=== PATIENT | female | born 1940 | race Caucasian/White ===

== ENCOUNTER 2016-07-17 19:50 | Emergency (ER) | payer OTHER, MEDICARE ==
--- NOTE | 2016-07-17 20:44 | ED SKIN/ALLERGY COMPLAINT ---
History of Present Illness General Chief Complaint: Skin Rash/ Abcess Stated Complaint: ABCESS, BLEEDING, PAIN, X 3 WEEK Source: patient Exam Limitations: no limitations Vital Signs & Intake/Output Vital Signs & Intake/Output Vital Signs Date Time Temp Pulse Resp B/P Pulse O2 O2 Flow FiO2 Ox Delivery Rate 07/17 2234 97.3 80 18 128/72 98 07/17 1999 97.5 97 18 156/77 99 Room Air Allergies Coded Allergies: Penicillins (Mild, RASH 07/17/16) naproxen (From NAPROSYN) (UNKNOWN 07/17/16) Triage Note: TRIAGE; PT TO ED WITH ?ABCESS TO THE BACK OF HER HEAD X3 WEEKS, DID NOT SEEN ANYONE FOR IT, STATES TODAY SHE TOOK A NAP AND WHEN SHE WOKE UP SHE NOTICED IT STARTED TO DRAIN, AREA APPEARS REDDENED AND DRAINING SLIGHTLY AT THIS TIME. Triage Nurses Notes Reviewed? yes Onset: Gradual Duration: constant Timing: recent history Severity: moderate Severity Numbers: 5 HPI: Patient is a 76-year-old female with past medical history of diabetes who presents to emergency room with concerns of a two-week history of tender swollen red region to the posterior aspect of her neck in which she noticed today after squeezing purulent discharge from the region. Patient denies any fevers or chills. (TYLOR MORE) Past History Travel History Traveled to [place] past 21 day No Medical History Any Pertinent Medical History? see below for history Cardiovascular: hypertension, hyperlipidemia Respiratory: obstructive sleep apnea Musculoskeletal: chronic back pain Endocrine: diabetes Surgical History Surgical History: non-contributory Psychosocial History What is your primary language Hungarian Tobacco Use: Never used Family History Hx Contributory? No (TYLOR MORE) Review of Systems Review of Systems Constitutional: Reports: no symptoms. EENTM: Reports: no symptoms. Respiratory: Reports: no symptoms. Cardiovascular: Reports: no symptoms. GI: Reports: no symptoms. Genitourinary: Reports: no symptoms. Musculoskeletal: Reports: no symptoms. Skin: Reports: see HPI. Neurological/Psychological: Reports: no symptoms. Hematologic/Endocrine: Reports: no symptoms. Immunologic/Allergic: Reports: no symptoms. All Other Systems: Reviewed and Negative (TYLOR MORE) Physical Exam Physical Exam General Appearance: no apparent distress, obese Skin: warm/dry Skin Problem Location: neck Comments: Well-developed well-nourished no apparent distress. HEENT: Atraumatic, extraocular motion intact Neck: Supple, no lymphadenopathy Back: Nontender Respiratory: No respiratory distress Extremities: No edema, full range of motion Neuro: Alert and oriented x3 Psych: Mood affect normal, normal memory normal judgment. Diagram Head: 1) 3 cm fluctuance erythema warmth and tenderness with minimal purulent discharge (TYLOR MORE) Progress Differential Diagnosis: abscess/cellulitis, allergic reaction, contact dermatitis Plan of Care: Orders Procedure Date/time Status HEAD & NECK CULTURE 07/17 2155 Active Microbiology 07/17 2199 HEAD/NECK: Head/Neck Culture - RES 07/17 2199 HEAD/NECK: Gram Stain - RES Betadine was initially applied for sterile technique Using 1% lidocaine 3 mL were used for local anesthesia. 1 cm incision was made Moderate purulent discharge noted Culture was obtained which was applied gauze and Tegaderm WAS applied. Patient tolerated well (TYLOR MORE) Departure Departure Disposition: HOME OR SELF CARE Condition: Stable Clinical Impression Primary Impression: Cellulitis and abscess of neck Referrals: MARY ALICE ZAPATA,CAROL CLEMENTS (PCP/Family) Additional Instructions: As discussed be in applying warm compresses to the area. Begin the prescription of Keflex and Bactrim as directed for the full course. Prescription awaiting at [facility] pharmacy. Begin IBUPROFEN for pain and inflammation. Return to emergency room in 2 days for wound recheck. If the bandages and titer falloff please apply with the extra ones provided to in the emergency room. If you know worsening symptoms or new concerning onset of symptom return to emergency Departure Forms: Customer Survey General Discharge Information (TYLOR MORE) PA/CONSUMER EDUCATOR Co-Sign Statement Statement: ED Attending supervision documentation- [X] I saw and evaluated the patient. I have also reviewed all the pertinent lab results and diagnostic results. I agree with the findings and the plan of care as documented in the PA's/CONSUMER EDUCATOR's documentation. [X] I have reviewed the ED Record and agree with the PA's/CONSUMER EDUCATOR's documentation. [] Additions or exceptions (if any) to the PAs/CONSUMER EDUCATOR's note and plan are summarized below: [] (MANOLO ZAPATA,JASMIN Covarrubias) Procedures Incision and Drainage Site: LATERAL POSTERIOR NECK Blade Size: 15 I & D Procedure: Yes: betadine prep, sterile drapes applied, sterile dressing applied, wick placed. Progress: Using Betadine for still technique I used 3 mL of 1% lidocaine for local anesthesia 1 cm incision was made, mild purulent discharge was noted culture was obtained which was applied gauze and Tegaderm applied. Patient tolerated well. (TYLOR MORE)
[2016-07-17 22:35] VITALS: BP 128/72
== END 2016-07-17 22:40 ==
LOC: ERH 19:50
DX: L03.221 Cellulitis of neck (principal); L02.11 Cutaneous abscess of neck
CPT/HCPCS: 87070

== ENCOUNTER 2016-07-19 07:48 | Emergency (ER) | payer OTHER, MEDICARE ==
[~2016-07-19] VITALS: Ht 167.6 cm; Wt 129.3 kg
[2016-07-19 07:55] VITALS: BP 109/73
--- NOTE | 2016-07-19 07:57 | ED ANIMAL BITE/WOUND CHECK ---
History of Present Illness General Chief Complaint: Suture Removal/Wound Recheck Stated Complaint: WOUND CHECK Source: patient Exam Limitations: no limitations Vital Signs & Intake/Output Vital Signs & Intake/Output Vital Signs Date Time Temp Pulse Resp B/P Pulse O2 O2 Flow FiO2 Ox Delivery Rate 07/19 0755 98.7 103 20 109/73 99 Room Air Room Air Allergies Coded Allergies: Penicillins (Mild, RASH 07/17/16) naproxen (From NAPROSYN) (UNKNOWN 07/17/16) Triage Note: PT TO ED FOR WOUND CHECK TO BACK OF NECK, I AND D ON THURSDAY "WITH PACKING". Triage Nurses Notes Reviewed? yes Onset: Abrupt Duration: day(s): (2) Timing: recent history Severity: moderate No Modifying Factors: none Associated Symptoms: swelling drainage HPI: 76 year old female who presents for wound check of her neck abscess that was was incised and drained in the ED a few days ago. She denies any fever or chills. Minimal drainage on dressing. Past History Travel History Traveled to [place] past 21 day No Medical History Any Pertinent Medical History? see below for history Neurological: NONE EENT: NONE Cardiovascular: hypertension, hyperlipidemia Respiratory: obstructive sleep apnea Gastrointestinal: NONE Hepatic: NONE Renal: acute tubular necrosis Musculoskeletal: chronic back pain Psychiatric: NONE Endocrine: diabetes Blood Disorders: NONE Cancer(s): NONE ACCOUNTING SUPERVISOR/Reproductive: NONE Surgical History Surgical History: non-contributory Psychosocial History What is your primary language Serbian Tobacco Use: Quit >30 days ago ETOH Use: occasional use Illicit Drug Use: denies illicit drug use Family History Hx Contributory? No Review of Systems Review of Systems Constitutional: Denies: chills, fever. EENTM: Reports: no symptoms. Respiratory: Reports: no symptoms. Cardiovascular: Reports: no symptoms. GI: Reports: no symptoms. Genitourinary: Reports: no symptoms. Musculoskeletal: Reports: no symptoms. Skin: Reports: see HPI. Neurological/Psychological: Reports: no symptoms. Hematologic/Endocrine: Denies: bruising, bleeding, polyuria, polydipsia. Immunologic/Allergic: Reports: no symptoms. All Other Systems: Reviewed and Negative Physical Exam Physical Exam General Appearance: well developed/nourished, mild distress Head: atraumatic Eyes: Bilateral: PERRL, EOMI. Ears, Nose, Throat: normal pharynx, normal ENT inspection, hearing grossly normal Neck: HEALING ABSCESS TO POSTERIOR NECK Back: normal inspection Extremities: normal range of motion Neurologic/Psych: awake, alert, oriented x 3, normal mood/affect Skin: intact, normal color, warm/dry Lymphatic: no anterior cervical viktoriya Progress Differential Diagnosis: abscess Plan of Care: WOUND PACKING REMOVED. Departure Departure Time of Disposition: 801 Disposition: HOME OR SELF CARE Condition: Stable Clinical Impression Primary Impression: Wound check, abscess Referrals: MARY ALICE ZAPATA,CAROL CLEMENTS (PCP/Family) Additional Instructions: CONTINUE THE ANTIBIOTICS DIRECTED AND SEE YOUR DOCTOR IN THE OFFICE ON THURSDAY FOR YOUR APPOINTMENT. RETURN NEEDED. Departure Forms: Customer Survey General Discharge Information
== END 2016-07-19 08:23 ==
LOC: ERH 07:48
DX: Z48.01 Encounter for change or removal of surgical wound dressing (principal)
CPT/HCPCS: 99281